=== PATIENT | female | born 1980 | race Caucasian/White ===

== ENCOUNTER 2016-06-20 05:33 | Observation (INO) | payer OTHER ==
[2016-06-20] MEDS ORDERED: SODIUM CHLORIDE 0.9% 1,000 ML IV STA (06:01)
[2016-06-20] MEDS ORDERED: KETOROLAC 30 MG/ML 1 ML VIAL IVP STA ×2 (06:01→06:42)
--- NOTE | 2016-06-20 06:07 | ED ---
Chest Pain HPI - General Source: patient, RN notes reviewed Mode of arrival: ambulatory Limitations: no limitations - History of Present Illness MD Complaint: chest pain <Karthik Burr - Last Filed: 06/20/16 06:56> <Mitch Nettles - Last Filed: 06/20/16 09:14> - General Chief Complaint: Chest Pain Stated Complaint: chest pain Time Seen by Provider: 06/20/16 05:50 - History of Present Illness Initial Comments: This is a 36-year-old female who states he had the onset of some sharp to dull left-sided chest pain it radiates to her back. Started about 3 AM awoke her from sleep. She states is 8/10 severity and does increase with deep breathing. She denies any fevers chills sweats cough abdominal pain no prior history of heart or lung disease she is a smoker she does use an inhaler but she's never been officially diagnosed as having asthma or COPD. She states she had similar pain about 4 years ago that was untreated and resolved spontaneously. (Karthik Brur) - Related Data Allergies Allergy/AdvReac Type Severity Reaction Status Date / Time No Known Allergies Allergy Verified 06/20/16 07:49 Review of Systems ROS Other: All systems not noted in ROS Statement are negative. <Karthik Burr - Last Filed: 06/20/16 06:56> ROS Other: All systems not noted in ROS Statement are negative. <Mitch Nettles - Last Filed: 06/20/16 09:14> ROS Statement: Those systems with pertinent positive or pertinent negative responses have been documented in the HPI. EKG Findings - EKG Results: EKG: interpreted by ERMD WNL, sinus rhythm, normal axis, normal QRS, normal ST/ T, no acute changes (Normal sinus rhythm a rate of 100 NJ interval 1:30 QRS duration 86 QT/QTC of 356/[address]-T wave changes.) <Karthik Burr - Last Filed: 06/20/16 06:56> Past Medical History Past Medical History: Hypertension History of Any Multi-Drug Resistant Organisms: None Reported Past Surgical History: No Surgical Hx Reported Past Psychological History: Anxiety Smoking Status: Current some day smoker Past Alcohol Use History: None Reported Past Drug Use History: None Reported <Karthik Burr - Last Filed: 06/20/16 06:56> General Exam Limitations: no limitations General appearance: alert, anxious, in distress Head exam: Present: atraumatic, normocephalic, normal inspection Eye exam: Present: normal appearance, PERRL, EOMI. Absent: scleral icterus, conjunctival injection, periorbital swelling ENT exam: Present: normal exam, mucous membranes moist Neck exam: Present: normal inspection. Absent: tenderness, meningismus, lymphadenopathy Respiratory exam: Present: normal lung sounds bilaterally, chest wall tenderness (Some reproducible tenderness palpation along the left costosternal margin.). Absent: respiratory distress, wheezes, rales, rhonchi, stridor Cardiovascular Exam: Present: regular rate, normal rhythm, normal heart sounds. Absent: systolic murmur, diastolic murmur, rubs, gallop, clicks GI/Abdominal exam: Present: soft, normal bowel sounds. Absent: distended, tenderness, guarding, rebound, rigid Extremities exam: Present: normal inspection, full ROM, normal capillary refill. Absent: tenderness, pedal edema, joint swelling, calf tenderness Back exam: Present: normal inspection Neurological exam: Present: alert, oriented X3, CN II-XII intact Psychiatric exam: Present: normal affect, normal mood Skin exam: Present: warm, dry, intact, normal color. Absent: rash <Karthik Burr - Last Filed: 06/20/16 06:56> <Mitch Nettles - Last Filed: 06/20/16 09:14> - General Exam Comments Initial Comments: This is a well-developed well-nourished awake alert oriented 3 female (Karthik Burr) Course <Karthik Burr - Last Filed: 06/20/16 06:56> <Mitch Nettles - Last Filed: 06/20/16 09:14> Vital Signs 06/20/16 06/20/16 06/20/16 05:42 06:27 06:41 Temperature 97.0 F L Pulse Rate 91 85 93 Respiratory 16 20 20 Rate Blood Pressure 160/97 150/74 138/73 O2 Sat by Pulse 100 100 98 Oximetry 06/20/16 06/20/16 06/20/16 07:19 07:36 08:41 Temperature Pulse Rate 86 94 92 Respiratory 18 18 18 Rate Blood Pressure 133/66 125/84 136/67 O2 Sat by Pulse 99 100 100 Oximetry - Reevaluation(s) Reevaluation #1: 06/20/16 06:56 The patient's care will be endorsed to Dr. Nettles who will make the final disposition. (Karthik Burr) 06/20/16 09:13 Chest x-ray shows no acute process Patient reevaluated and having continued discomfort. Patient will be provided morphine. Case discussed with Dr. grewal, who will admit for observation. Patient and family updated. (Mitch Nettles) Disposition <Karthik Burr - Last Filed: 06/20/16 06:56> <Mitch Nettles - Last Filed: 06/20/16 09:14> Clinical Impression: Chest pain Disposition: ADMITTED IP TO THIS HOSP
[2016-06-20 06:21] LABS: Basophils # (A) 0.1 k/uL (0-0.2); Basophils % (A) 1 %; CH 26.7; Eosinophils # (A) 0.2 k/uL (0-0.7); Eosinophils % (A) 2 %; HCT 41.8 % (34.0-46.0); HDW 2.77; HGB 13.8 gm/dL (11.4-16.0); Luc # (Auto) 0.29; Luc % (Auto) 2; Lymphocytes # (A) 3.2 k/uL (1.0-4.8); Lymphocytes % (A) 26 %; MCH 26.8 pg (25.0-35.0); MCHC 32.9 g/dL (31.0-37.0); MCV 81.3 fL (80.0-100.0); Mean Platelet Volume 6.7; Monocytes # (A) 0.8 k/uL (0-1.0); Monocytes % (A) 7 %; Neutrophils # (A) 7.9 k/uL (1.3-7.7); Neutrophils % (A) 63 %; RBC 5.14 m/uL (3.80-5.40); RDW 14.3 % (11.5-15.5); WBC 12.5 k/uL (3.8-10.6); WBC (Perox) 12.35
[2016-06-20 06:33] LABS: ALT 30 U/L (9-52); AST 14 U/L (14-36); Alkaline Phosphatase 57 U/L (38-126); Amylase 84 U/L (30-110); Anion Gap 9 mmol/L; Blood Urea Nitrogen 10 mg/dL (7-17); Calcium 9.3 mg/dL (8.4-10.2); Carbon Dioxide 26 mmol/L (22-30); Chloride 107 mmol/L (98-107); Glucose 96 mg/dL (74-99); Magnesium 2.3 mg/dL (1.6-2.3); Non-African American GFR(MDRD) >60 (>60 ml/min/1.73 sqM); Potassium 4.6 mmol/L (3.5-5.1); Sodium 142 mmol/L (137-145); Total Bilirubin 0.4 mg/dL (0.2-1.3); Total Protein 7.5 g/dL (6.3-8.2)
[2016-06-20 06:43] LABS: Creatine Kinase 53 U/L (30-135)
[2016-06-20 06:46] LABS: INR 0.9 (<1.1); Partial Thromboplastin Time 24.8 sec (22.0-30.0); Prothrombin Time 9.5 sec (9.0-12.0)
[2016-06-20 06:56] LABS: Creatine Kinase MB <0.2 ng/mL (0.0-2.4); Troponin I <0.012 ng/mL (0.000-0.034)
[2016-06-20 07:35] LABS: Appearance,Urine Turbid (Clear); Bacteria,Urine Occasional /hpf; Bilirubin,Urine Negative (Negative); Glucose,Urine (UA) Negative (Negative); Ketones,Urine Negative (Negative); Leukocyte Esterase,Urine Large (Negative); Mucus,Urine Occasional /hpf; Nitrite,Urine Negative (Negative); Particle Count 37333; Protein,Urine Trace (Negative); RBC,Urine 12 /hpf (0-5); Specific Gravity,Urine 1.022 (1.001-1.035); Squamous Epithelial Cell,Urine 32 /hpf (0-4); UA Billing (MACRO vs. MICRO) MICRO; Urobilinogen,Urine <2.0 mg/dL (<2.0)
[2016-06-20 07:36] LABS: Glucose,Whole Blood 92 mg/dL (75-99)
--- NOTE | 2016-06-20 08:02 | XR ---
EXAMINATION TYPE: XR chest 2V DATE OF EXAM: 06/20/2016 6:27 AM COMPARISON: NONE HISTORY: Chest pain TECHNIQUE: Frontal and lateral views of the chest are obtained. FINDINGS: There is no focal air space opacity, pleural effusion, or pneumothorax seen. The cardiac silhouette size is within normal limits. The osseous structures are intact. IMPRESSION: No acute cardiopulmonary process.
[2016-06-20] MEDS ORDERED: NITROGLYCERIN SL TABS 0.4 MG TAB SUBLINGUAL STA (08:15)
[2016-06-20] MEDS ORDERED: MORPHINE SULFATE 4 MG/ML SYRINGE IVP STA (08:50)
[2016-06-20] MEDS ORDERED: ONDANSETRON 4 MG/2 ML VIAL IVP STA (09:02)
[2016-06-20] MEDS ORDERED: NITROGLYCERIN SL TABS 0.4 MG TAB SUBLINGUAL PRN (09:14)
[2016-06-20] MEDS ORDERED: ACETAMINOPHEN TAB 325 MG TAB PO PRN (11:43)
[2016-06-20] MEDS: NITROGLYCERIN OINT 1 INCH/GM PACKET TOPICAL SCH ×2 (12:06→20:04)
[2016-06-20 12:11] LABS: Creatine Kinase 51 U/L (30-135)
[2016-06-20 12:25] LABS: Creatine Kinase MB <0.2 ng/mL (0.0-2.4); Troponin I <0.012 ng/mL (0.000-0.034)
[2016-06-20 18:48] LABS: Creatine Kinase 48 U/L (30-135)
[2016-06-20 19:01] LABS: Creatine Kinase MB <0.2 ng/mL (0.0-2.4); Troponin I <0.012 ng/mL (0.000-0.034)
[2016-06-20] MEDS ORDERED: CYCLOBENZAPRINE 10 MG TAB PO PRN (20:34)
[2016-06-20] MEDS ORDERED: clonazePAM 0.5 MG TAB PO PRN (20:34)
[2016-06-20] MEDS ORDERED: GABAPENTIN 400 MG CAP PO PRN (20:34)
[2016-06-20] MEDS: HYDROcodone/APAP 7.5-325MG 1 EACH TAB PO PRN (20:44)
[2016-06-21] MEDS: NITROGLYCERIN OINT 1 INCH/GM PACKET TOPICAL SCH ×4 (00:11→17:52)
[2016-06-21 05:56] LABS: Cholesterol 154 mg/dL (<200); HDL Cholesterol 38 mg/dL (40-60); Triglycerides 309 mg/dL (<150)
[2016-06-21] MEDS: HYDROcodone/APAP 7.5-325MG 1 EACH TAB PO PRN ×2 (08:14→16:04)
[2016-06-21] MEDS ORDERED: ASPIRIN 325 MG TAB PO SCH (09:00)
[2016-06-21] MEDS ORDERED: CITALOPRAM HYDROBROMIDE 20 MG TAB PO SCH (09:00)
--- NOTE | 2016-06-21 11:10 | P.CRDCN ---
History of Present Illness Consult date: 06/21/16 History of present illness: This is a 36-year-old female with history of hypertension and obesity who came to the hospital with complaints of chest discomfort that started around 3:00 last night. The pain was sharp in nature and felt in the precordial area and also in the back. The pain is respirophasic and also seemed to be related to movements of the chest. This morning patient doesn't have any chest pain but most of the pain is in the back associated with some tenderness. Her EKG did not reveal any acute changes. Cardiac enzymes are negative. Pains appear to be muscular skeletal. We discussed about doing a stress test to rule out any underlying coronary artery disease. Patient preferred not to have the test. We 'll do echocardiogram. If the echo is normal, patient could be discharged on symptomatically therapy. Follow-up with primary care. If necessary, an outpatient stress test could be considered. Review of Systems As per the chart Past Medical History Past Medical History: Hypertension, Pneumonia Additional Past Medical History / Comment(s): RLS History of Any Multi-Drug Resistant Organisms: None Reported Past Surgical History: No Surgical Hx Reported Past Anesthesia/Blood Transfusion Reactions: Unable to Obtain, Motion Sickness Additional Past Anesthesia/Blood Transfusion Reaction / Comment(s): Pt has never received anesthesia. Past Psychological History: Anxiety Additional Psychological History / Comment(s): Pt states her anxiety has been increased lately d/t recent move and looking for employment. She resides with her significant other. She is independent. Smoking Status: Current some day smoker Past Alcohol Use History: None Reported Additional Past Alcohol Use History / Comment(s): Pt states she smokes occasionally in the past year due to stress. Past Drug Use History: None Reported - Past Family History Father Family Medical History: Hypertension Additional Family Medical History / Comment(s): Father has heart problems and has had both knees replaced. He is 65yrs old. Mother Family Medical History: COPD, Fibromyalgia, Musculoskeletal Disorder, Neurologic Disorder, Seizure Disorder Additional Family Medical History / Comment(s): Mother has MD. She is 64yrs old. Medications and Allergies Home Medications Medication Instructions Recorded Confirmed Type Citalopram Hydrobromide [CeleXA] 20 mg PO DAILY 06/20/16 06/20/16 History Cyclobenzaprine [Flexeril] 10 mg PO DAILY PRN 06/20/16 06/20/16 History Gabapentin [Neurontin] 800 mg PO BID PRN 06/20/16 06/20/16 History Multivitamin [Multivitamins Adult 1 tab PO DAILY 06/20/16 06/20/16 History Gummies] clonazePAM [KlonoPIN] 0.5 mg PO DAILY PRN 06/20/16 06/20/16 History Allergies Allergy/AdvReac Type Severity Reaction Status Date / Time No Known Allergies Allergy Verified 06/20/16 07:49 Physical Exam Vitals: Vital Signs Temp Pulse Pulse Resp BP BP Pulse Ox 06/21/16 08:00 97.7 F 85 16 112/87 100 06/21/16 04:00 98 F 82 16 134/74 100 06/21/16 03:51 71 16 06/21/16 00:00 97.8 F 90 16 135/76 98 06/20/16 23:41 90 16 06/20/16 20:00 98 F 100 16 152/92 99 06/20/16 16:00 98.3 F 72 16 125/69 98 06/20/16 12:36 98 Intake and Output 06/20/16 06/21/16 06/21/16 22:59 06:59 14:59 Intake Total 500 Balance 500 Intake: Oral 500 Other: Voiding Method Toilet Toilet Toilet # Voids 1 2 GENERAL EXAM: Patient is alert and oriented and doesn't appear to be in any acute distress HEENT: Normocephalic. Normal reaction of pupils, equal size, normal range of extraocular motion. No erythema or exudates in the throat. NECK: No masses, no nuchal rigidity. CHEST: No chest wall deformity. LUNGS: Equal air entry with no crackles or wheeze. HEART: S1 and S2 normal with no audible mumurs or gallops. Regular rhythm, femorals equal on both sides.. ABDOMEN: No hepatosplenomegaly, normal bowel sounds, no guarding or rigidity. SKIN: No rashes CENTRAL NERVOUS SYSTEM: No focal deficits. EXTREMITIES: No cyanosis, clubbing or edema. Results 06/20/16 05:59 06/20/16 05:59 Cardiac Enzymes 06/20/16 06/20/16 Range/Units 11:36 18:08 CK-MB (CK-2) <0.2 <0.2 (0.0-2.4) ng/mL Troponin I <0.012 <0.012 (0.000-0.034) ng/mL Current Medications Generic Name Dose Route Start Last Admin Trade Name Elder PRN Reason Stop Dose Admin Acetaminophen 650 mg 06/20/16 11:43 06/20/16 12:06 Tylenol Tab PO 650 mg Q4HR PRN Administration Fever and/ or Mild Pain Hydrocodone Bitart/Acetaminophen 1 each 06/20/16 20:36 06/21/16 08:14 [place] 7.5-325 PO 1 each Q6H PRN Administration Moderate Pain Aspirin 325 mg 06/21/16 09:00 Aspirin PO DAILY EVIN Citalopram Hydrobromide 20 mg 06/21/16 09:00 Celexa PO DAILY EVIN Clonazepam 0.5 mg 06/20/16 20:34 Klonopin PO DAILY PRN Anxiety Cyclobenzaprine HCl 10 mg 06/20/16 20:34 Flexeril PO DAILY PRN Spasms Gabapentin 800 mg 06/20/16 20:34 Neurontin PO BID PRN Pain Ceftriaxone Sodium 1,000 mg/ 50 mls @ 100 mls/hr 06/20/16 11:45 06/20/16 12: 10 Sodium Chloride IVPB 100 mls/hr Q24HR EVIN Administration Multivitamins 1 each 06/21/16 12:00 Theragran PO DAILY@1200 EVIN Nitroglycerin 1 inch 06/20/16 12:00 06/21/16 05:34 Nitro-Bid Oint TOPICAL Not Given Q6HR [facility] Nitroglycerin 0.4 mg 06/20/16 09:14 Nitrostat SUBLINGUAL Q5M PRN Chest Pain Intake and Output 06/20/16 06/21/16 06/21/16 22:59 06:59 14:59 Intake Total 500 Balance 500 Intake: Oral 500 Other: Voiding Method Toilet Toilet Toilet # Voids 1 2 EKG Interpretations (text) Sinus rhythm Assessment and Plan (1) Hypertension Status: Acute (2) Chest pain Status: Acute Plan: Her chest pains appear to be atypical and probably muscular skeletal. Enzymes and EKGs are negative. Patient prefers not to have a stress test. We'll do the echocardiogram. If that is normal patient could be discharged home on symptomatically medical therapy. Follow-up with PCP.
--- NOTE | 2016-06-21 11:40 | HP ---
DATE OF ADMISSION: 06/20/2016 PRESENTING COMPLAINT: Chest pain. HISTORY OF PRESENTING COMPLAINT: This is a 36-year-old patient who has just moved here with her fiance from [place] to [place]. Chronic stable conditions include hypertension, restless leg syndrome, GERD. Patient has been moving heavy boxes up until about 2 weeks ago. Patient presents with chest pain, located behind the left breast, felt a bit sharp, sometimes going through the back. She may be a little bit short of breath, dizzy she says, no perspiration, especially on movements, just feels tired. No prior cardiac history, otherwise pretty active. REVIEW OF SYSTEMS: CONSTITUTIONAL: None. HEENT: None. RESPIRATORY: None. CARDIOVASCULAR: As above. GASTROINTESTINAL: Heartburn present. MUSCULOSKELETAL: As above. DERMATOLOGICAL: None. HEMATOLOGICAL: None. LYMPHATIC: None. PSYCHIATRY: None. NEUROLOGICAL: Restless legs syndrome. Past history of hypertension, restless leg syndrome, GERD. PAST SURGICAL HISTORY: None. SOCIAL HISTORY: Patient does occasional cigarettes, looking for a job. Lives with her female fianc?, denies recreational drugs. FAMILY HISTORY: Father had heart problems, hypertension. HOME MEDICATIONS: 1. Klonopin 0.5 p.o. daily p.r.n. 2. Multivitamins 1 tablet p.o. daily. 3. Neurontin 800 mg p.o. b.i.d. p.r.n. 4. Flexeril 10 mg p.o. daily p.r.n. 5. Celexa 20 mg p.o. daily. ALLERGIES: None. On examination, temperature 97.7, pulse 85, respiration 16, blood pressure 102/87, pulse ox 100% on room air. GENERAL APPEARANCE: Well built, BMI of 43.4, sitting up, comfortable. EYES: Pupils equal. Conjunctivae normal. HEENT: Oral cavity normal. NECK: JVD not raised. Mass not palpable. Respiratory effort normal. Lungs are clear. CARDIOVASCULAR: First and second sounds normal. No edema. ABDOMEN: Soft, nontender. Liver and spleen not palpable. LYMPHATIC: No lymph node palpable in neck or axillae. PSYCHIATRY: Alert and oriented x3. Mood and affect normal. NEUROLOGICAL: Pupils equal. Cranial nerves grossly intact. Power and sensation grossly intact. MUSCULOSKELETAL: Some reproducible pain in the left chest wall. INVESTIGATIONS: White count 12.5, hemoglobin 13.8. D-dimer 0.32, potassium 4.6, creatinine 0.012. Chest x-ray, nil acute. ASSESSMENT: 1. Left chest wall pain, could be musculoskeletal and the patient is obese, has been heavy lifting heavy boxes while moving. Risk factor only includes hypertension. We need to rule out a cardiac cause. 2. Essential hypertension. 3. Restless leg syndrome. 4. Gastroesophageal reflux disease. 5. Morbid obesity, body mass index of 43.1. PLAN: Patient is on aspirin, nitro paste. Cardiology is consulted. Patient also being treated for a UTI from the ER. Patient will be established with Dr. Rojas as her family doctor.
[2016-06-21] MEDS ORDERED: MULTIVITAMINS, THERA 1 EACH TAB PO SCH (12:00)
[2016-06-21 13:22] VITALS: RESP 18; TEMP 97.8
[2016-06-21 16:41] VITALS: BP 131/81; PULSE 89
--- NOTE | 2016-06-21 17:15 | ECHOF ---
Referral Reason:Chest pain and cardiomyopathy MEASUREMENTS -------- HEIGHT: 165.1 cm WEIGHT: 117.5 kg BP: 112/87 RVIDd: 3.2 cm (< 3.3) IVSd: 1.1 cm (0.6 - 1.1) LVIDd: 4.1 cm (3.9 - 5.3) LVPWd: 1.0 cm (0.6 - 1.1) IVSs: 1.6 cm LVIDs: 2.9 cm LVPWs: 1.7 cm LA Diam: 3.3 cm (2.7 - 3.8) Ao Diam: 3.0 cm (2.0 - 3.7) AV Cusp: 2.1 cm (1.5 - 2.6) MV EXCURSION: 11.453 mm (> 18.000) MV EF SLOPE: 73 mm/s (70 - 150) EPSS: 0.7 cm MV E Luke: 0.97 m/s MV DecT: 201 ms MV A Luke: 0.99 m/s MV E/A Ratio: 0.98 FINDINGS -------- Sinus rhythm. This was a technically adequate study. The left ventricular size is normal. Left ventricular wall thickness is normal. Overall left ventricular systolic function is normal with, an EF between 60 - 65 %. The right ventricle is normal in size and function. The left atrial size is normal. The right atrium is normal in size. The aortic valve is trileaflet and appears structurally normal. There is trace to mild mitral regurgitation. The tricuspid valve appears structurally normal. Trace/mild (physiologic) pulmonic regurgitation. The aortic root, ascending aorta and aortic arch are normal. Normal inferior vena cava with normal inspiratory collapse consistent with estimated right atrial pressure of 5 mmHg. There is no pericardial effusion. CONCLUSIONS -------- 1. Sinus rhythm. 2. There is trace to mild mitral regurgitation. 3. The tricuspid valve appears structurally normal. 4. Trace/mild (physiologic) pulmonic regurgitation. 5. The aortic root, ascending aorta and aortic arch are normal. 6. Normal inferior vena cava with normal inspiratory collapse consistent with estimated right atrial pressure of 5 mmHg. 7. There is no pericardial effusion. 8. This was a technically adequate study. 9. The left ventricular size is normal. 10. Left ventricular wall thickness is normal. 11. Overall left ventricular systolic function is normal with, an EF between 60 - 65 %. 12. The right ventricle is normal in size and function. 13. The left atrial size is normal. 14. The right atrium is normal in size. 15. The aortic valve is trileaflet and appears structurally normal. TURBINE INSPECTOR: Daya Banerjee RDCS
--- NOTE | 2016-06-24 14:55 | DS ---
DATE OF ADMISSION: 06/20/2016 DATE OF DISCHARGE: 06/21/2016 FINAL DIAGNOSIS(ES): 1. Chest wall pain, likely musculoskeletal at rest. 2. Essential hypertension. 3. Restless leg syndrome. 4. Morbid obesity, body mass index of 43.1. 5. Urinary tract infection present on admission. HOSPITAL COURSE: This patient has been lifting heavy boxes in the process of moving. Presented with left chest wall pain, ( ) present. Seen by cardiology Dr. Hodge. Latia to be discharged. The patient did have a 2-D echocardiogram that was normal. On examination, left sided reproducible chest pain. Lungs clear. Troponins are negative. DISCHARGE MEDICATIONS: 1. Celexa 20 mg p.o. daily. 2. Flexeril 10 mg p.o. daily. 3. Neurontin 800 mg p.o. b.i.d. p.r.n. 4. Multivitamin 1 tablet p.o. daily. 5. Klonopin 0.5 mg p.o. daily p.r.n. 6. Cipro 250 mg p.o. q.12 6 tablets. 7. Naproxen 250 mg p.o. b.i.d., 14 tablets. Follow up with Dr. Rojas in one week.
== END 2016-06-21 18:00 | disposition home or self-care (01) ==
LOC: EC 05:33 → 3OBS 09:14
PROVIDERS: ADMIT Hospitalist; ATTEND Hospitalist
DX: R07.89 Other chest pain (principal); R07.2 Precordial pain; I10 Essential (primary) hypertension; G25.81 Restless legs syndrome; K21.9 Gastro-esophageal reflux disease without esophagitis; E66.01 Morbid (severe) obesity due to excess calories; Z68.41 Body mass index [BMI] 40.0-44.9, adult; F41.9 Anxiety disorder, unspecified; N39.0 Urinary tract infection, site not specified; F17.210 Nicotine dependence, cigarettes, uncomplicated; Z82.49 Family history of ischemic heart disease and other diseases of the circulatory system; Z79.899 Other long term (current) drug therapy; Z87.01 Personal history of pneumonia (recurrent); Z82.5 Family history of asthma and other chronic lower respiratory diseases
CPT/HCPCS: 96375 ×2; 93005 ×2; 96365; 96366 ×2; 96376; 96361; 99285; 36415; 93306; 85379; 83880; 80061; 80053; 82150; 82550; 82553; 83690; 83735; 84484; 85025; 85610; 85730; 81001; 71020; G0378 ×2; J2270; J2405; J0696 ×2; J1885; 96374

== ENCOUNTER 2016-07-21 06:45 | Emergency (ER) | payer OTHER ==
[2016-07-21] MEDS ORDERED: KETOROLAC 30 MG/ML 1 ML VIAL IVP STA (07:36)
[2016-07-21] MEDS ORDERED: SODIUM CHLORIDE 0.9% 1,000 ML IV STA (07:36)
[2016-07-21] MEDS ORDERED: METOCLOPRAMIDE 5 MG/ML 2 ML VIAL IVP STA (07:36)
--- NOTE | 2016-07-21 07:41 | ED ---
General Adult HPI - General Chief complaint: Abdominal Pain Stated complaint: abd pain,vomiting Time Seen by Provider: 07/21/16 07:00 Source: patient, RN notes reviewed Mode of arrival: ambulatory Limitations: no limitations - History of Present Illness Initial comments: Patient is a pleasant 36-year-old female presenting to the emergency department with complaints of abdominal discomfort. Onset was 5 AM. Discomfort is upper abdomen and does radiate somewhat towards the back. Patient has had nausea 3 episodes of vomiting. No fever. Patient last had oral intake at 9 PM. Patient has had similar symptoms a couple times previously. Patient once was seen in the emergency department work however complain more of chest discomfort. Patient states no significant chest discomfort today. No dyspnea. Patient questions if her gallbladder could be causing her symptoms. - Related Data Home Medications Medication Instructions Recorded Confirmed Gabapentin [Neurontin] 800 mg PO BID PRN 06/20/16 07/21/16 Multivitamin [Multivitamins Adult 1 tab PO DAILY 06/20/16 07/21/16 Gummies] Escitalopram [Lexapro] 20 mg PO DAILY 07/21/16 07/21/16 Previous Rx's Medication Instructions Recorded Amoxicillin 500 mg PO Q8H #30 capsule 07/21/16 Hydrocodone/Acetaminophen [Curlew 2 each PO Q6HR PRN #20 tab 07/21/16 5-325] Metoclopramide HCl [Reglan] 10 mg PO Q6HR PRN #15 tablet 07/21/16 Allergies Allergy/AdvReac Type Severity Reaction Status Date / Time No Known Allergies Allergy Verified 07/21/16 06:54 Review of Systems ROS Statement: Those systems with pertinent positive or pertinent negative responses have been documented in the HPI. ROS Other: All systems not noted in ROS Statement are negative. Constitutional: Denies: fever Eyes: Denies: eye pain ENT: Denies: ear pain Respiratory: Denies: cough Cardiovascular: Denies: chest pain Endocrine: Denies: fatigue Gastrointestinal: Reports: abdominal pain, nausea, vomiting Genitourinary: Denies: dysuria Musculoskeletal: Denies: back pain Skin: Denies: rash Neurological: Denies: weakness Past Medical History Past Medical History: Hypertension, Pneumonia Additional Past Medical History / Comment(s): RLS History of Any Multi-Drug Resistant Organisms: None Reported Past Surgical History: No Surgical Hx Reported Past Anesthesia/Blood Transfusion Reactions: Unable to Obtain, Motion Sickness Additional Past Anesthesia/Blood Transfusion Reaction / Comment(s): Pt has never received anesthesia. Past Psychological History: Anxiety Additional Psychological History / Comment(s): Pt states her anxiety has been increased lately d/t recent move and looking for employment. She resides with her significant other. She is independent. Smoking Status: Current some day smoker Past Alcohol Use History: None Reported Additional Past Alcohol Use History / Comment(s): Pt states she smokes occasionally in the past year due to stress. Past Drug Use History: None Reported - Past Family History Father Family Medical History: Hypertension Additional Family Medical History / Comment(s): Father has heart problems and has had both knees replaced. He is 65yrs old. Mother Family Medical History: COPD, Fibromyalgia, Musculoskeletal Disorder, Neurologic Disorder, Seizure Disorder Additional Family Medical History / Comment(s): Mother has MD. She is 64yrs old. General Exam Limitations: no limitations General appearance: alert, in no apparent distress Head exam: Present: atraumatic Eye exam: Present: normal appearance, PERRL ENT exam: Present: normal oropharynx Neck exam: Present: normal inspection Respiratory exam: Present: normal lung sounds bilaterally Cardiovascular Exam: Present: regular rate, normal rhythm Expanded Peripheral pulses: 2+: Posterior Tibialis (R), Posterior Tibialis (L) GI/Abdominal exam: Present: soft, tenderness (Mild epigastric tenderness, moderate right upper quadrant tenderness), normal bowel sounds. Absent: distended, guarding, rebound, rigid, pulsatile mass Extremities exam: Present: normal inspection Neurological exam: Present: alert Psychiatric exam: Present: normal affect, normal mood Skin exam: Present: normal color Course Vital Signs 07/21/16 06:52 Temperature 96.9 F L Pulse Rate 78 Respiratory 18 Rate Blood Pressure 176/104 O2 Sat by Pulse 99 Oximetry Medical Decision Making - Medical Decision Making Patient reexamined and improved. Only mild tenderness of the right upper quadrant. Patient states discomfort is currently 3/10 and states it is tolerable. No nausea. Patient updated on results. Case was discussed in detail with Dr. Catherine, including blood work and ultrasound. She states patient can be discharged for follow-up this week. She does request antibiotics. Patient updated on plan. Patient will be discharged pending recheck blood pressure. - Lab Data Result diagrams: 07/21/16 07:03 07/21/16 07:03 Lab Results 07/21/16 07/21/16 07/21/16 Range/Units 07:03 07:03 07:03 WBC 13.2 H (3.8-10.6) k/uL RBC 4.91 (3.80-5.40) m/uL Hgb 13.0 (11.4-16.0) gm/dL Hct 40.9 (34.0-46.0) % MCV 83.2 (80.0-100.0) fL MCH 26.6 (25.0-35.0) pg MCHC 31.9 (31.0-37.0) g/dL RDW 14.2 (11.5-15.5) % Plt Count 351 (150-450) k/uL Neutrophils % 63 % Lymphocytes % 29 % Monocytes % 5 % Eosinophils % 1 % Basophils % 1 % Neutrophils # 8.3 H (1.3-7.7) k/uL Lymphocytes # 3.8 (1.0-4.8) k/uL Monocytes # 0.6 (0-1.0) k/uL Eosinophils # 0.2 (0-0.7) k/uL Basophils # 0.1 (0-0.2) k/uL PT (9.0-12.0) sec INR (<1.1) APTT (22.0-30.0) sec Sodium 143 (137-145) mmol/L Potassium 3.8 (3.5-5.1) mmol/L Chloride 104 (98-107) mmol/L Carbon Dioxide 27 (22-30) mmol/L Anion Gap 12 mmol/L BUN 13 (7-17) mg/dL Creatinine 0.75 (0.52-1.04) mg/dL Est GFR (MDRD) Af Amer >60 (>60 ml/min/1.73 sqM) Est GFR (MDRD) Non-Af >60 (>60 ml/min/1.73 sqM) Glucose 109 H (74-99) mg/dL Calcium 8.8 (8.4-10.2) mg/dL Total Bilirubin 0.4 (0.2-1.3) mg/dL AST 19 (14-36) U/L ALT 29 (9-52) U/L Alkaline Phosphatase 56 (38-126) U/L Total Protein 7.3 (6.3-8.2) g/dL Albumin 4.1 (3.5-5.0) g/dL Amylase 75 (30-110) U/L Lipase 180 (23-300) U/L Urine Color Yellow Urine Appearance Turbid H (Clear) Urine pH 5.5 (5.0-8.0) Ur Specific [place] 1.024 (1.001-1.035) Urine Protein Trace H (Negative) Urine Glucose (UA) Negative (Negative) Urine Ketones Negative (Negative) Urine Blood Small H (Negative) Urine Nitrite Negative (Negative) Urine Bilirubin Negative (Negative) Urine Urobilinogen <2.0 (<2.0) mg/dL Ur Leukocyte Esterase Small H (Negative) Urine RBC 2 (0-5) /hpf Urine WBC 2 (0-5) /hpf Ur Squamous Epith Cells 41 H (0-4) /hpf Calcium Oxalate Crystal Moderate H (None) /hpf Urine Bacteria Rare H (None) /hpf Urine Mucus Rare H (None) /hpf Urine HCG, Qual (Not Detectd) 07/21/16 07/21/16 Range/Units 07:03 07:03 WBC (3.8-10.6) k/uL RBC (3.80-5.40) m/uL Hgb (11.4-16.0) gm/dL Hct (34.0-46.0) % MCV (80.0-100.0) fL MCH (25.0-35.0) pg MCHC (31.0-37.0) g/dL RDW (11.5-15.5) % Plt Count (150-450) k/uL Neutrophils % % Lymphocytes % % Monocytes % % Eosinophils % % Basophils % % Neutrophils # (1.3-7.7) k/uL Lymphocytes # (1.0-4.8) k/uL Monocytes # (0-1.0) k/uL Eosinophils # (0-0.7) k/uL Basophils # (0-0.2) k/uL PT 9.8 (9.0-12.0) sec INR 1.0 (<1.1) APTT 25.0 (22.0-30.0) sec Sodium (137-145) mmol/L Potassium (3.5-5.1) mmol/L Chloride (98-107) mmol/L Carbon Dioxide (22-30) mmol/L Anion Gap mmol/L BUN (7-17) mg/dL Creatinine (0.52-1.04) mg/dL Est GFR (MDRD) Af Amer (>60 ml/min/1.73 sqM) Est GFR (MDRD) Non-Af (>60 ml/min/1.73 sqM) Glucose (74-99) mg/dL Calcium (8.4-10.2) mg/dL Total Bilirubin (0.2-1.3) mg/dL AST (14-36) U/L ALT (9-52) U/L Alkaline Phosphatase (38-126) U/L Total Protein (6.3-8.2) g/dL Albumin (3.5-5.0) g/dL Amylase (30-110) U/L Lipase (23-300) U/L Urine Color Urine Appearance (Clear) Urine pH (5.0-8.0) Ur Specific [place] (1.001-1.035) Urine Protein (Negative) Urine Glucose (UA) (Negative) Urine Ketones (Negative) Urine Blood (Negative) Urine Nitrite (Negative) Urine Bilirubin (Negative) Urine Urobilinogen (<2.0) mg/dL Ur Leukocyte Esterase (Negative) Urine RBC (0-5) /hpf Urine WBC (0-5) /hpf Ur Squamous Epith Cells (0-4) /hpf Calcium Oxalate Crystal (None) /hpf Urine Bacteria (None) /hpf Urine Mucus (None) /hpf Urine HCG, Qual Not Detected (Not Detectd) - Radiology Data Radiology results: report reviewed (Ultrasound gallbladder shows cholelithiasis and small amount of free fluid adjacent to the pancreas.), image reviewed (KUB shows no acute process) Disposition Clinical Impression: Cholelithiasis Disposition: HOME SELF-CARE Condition: Stable Instructions: Biliary Colic (ED), Gallstones (ED) Additional Instructions: Please follow-up with surgeon Dr. Catherine this week. She will send you up for surgery. Return for fever, increased pain, vomiting, worsening symptoms or other concerns. Prescriptions: Amoxicillin 500 mg PO Q8H #30 capsule Hydrocodone/Acetaminophen [Curlew 5-325] 2 each PO Q6HR PRN #20 tab PRN Reason: Pain Metoclopramide HCl [Reglan] 10 mg PO Q6HR PRN #15 tablet PRN Reason: Nausea Referrals: Joann Martin MD [STAFF PHYSICIAN] - 1-2 days Tori Catherine MD [STAFF PHYSICIAN] - 1-2 days Time of Disposition: 09:32
[2016-07-21 08:04] LABS: Basophils # (A) 0.1 k/uL (0-0.2); Basophils % (A) 1 %; CH 26.3; CHCM 31.7; Eosinophils # (A) 0.2 k/uL (0-0.7); Eosinophils % (A) 1 %; HCT 40.9 % (34.0-46.0); HDW 2.64; Luc # (Auto) 0.25; Luc % (Auto) 2; Lymphocytes # (A) 3.8 k/uL (1.0-4.8); Lymphocytes % (A) 29 %; MCH 26.6 pg (25.0-35.0); MCHC 31.9 g/dL (31.0-37.0); MCV 83.2 fL (80.0-100.0); Mean Platelet Volume 6.8; Monocytes # (A) 0.6 k/uL (0-1.0); Monocytes % (A) 5 %; Neutrophils # (A) 8.3 k/uL (1.3-7.7); Neutrophils % (A) 63 %; RBC 4.91 m/uL (3.80-5.40); RDW 14.2 % (11.5-15.5); WBC 13.2 k/uL (3.8-10.6); WBC (Perox) 12.91
[2016-07-21 08:09] LABS: Appearance,Urine Turbid (Clear); Bacteria,Urine Rare /hpf; Bilirubin,Urine Negative (Negative); Calcium Oxalate Crystals,Urine Moderate /hpf; Glucose,Urine (UA) Negative (Negative); Ketones,Urine Negative (Negative); Leukocyte Esterase,Urine Small (Negative); Mucus,Urine Rare /hpf; Nitrite,Urine Negative (Negative); PH, Urine 5.5 (5.0-8.0); Particle Count 18106; Protein,Urine Trace (Negative); RBC,Urine 2 /hpf (0-5); Specific Gravity,Urine 1.024 (1.001-1.035); Squamous Epithelial Cell,Urine 41 /hpf (0-4); UA Billing (MACRO vs. MICRO) MICRO; Urobilinogen,Urine <2.0 mg/dL (<2.0); WBC,Urine 2 /hpf (0-5)
[2016-07-21 08:13] LABS: Prothrombin Time 9.8 sec (9.0-12.0)
[2016-07-21 08:17] LABS: ALT 29 U/L (9-52); AST 19 U/L (14-36); Alkaline Phosphatase 56 U/L (38-126); Amylase 75 U/L (30-110); Anion Gap 12 mmol/L; Blood Urea Nitrogen 13 mg/dL (7-17); Calcium 8.8 mg/dL (8.4-10.2); Carbon Dioxide 27 mmol/L (22-30); Chloride 104 mmol/L (98-107); Glucose 109 mg/dL (74-99); Non-African American GFR(MDRD) >60 (>60 ml/min/1.73 sqM); Potassium 3.8 mmol/L (3.5-5.1); Sodium 143 mmol/L (137-145); Total Bilirubin 0.4 mg/dL (0.2-1.3); Total Protein 7.3 g/dL (6.3-8.2)
[2016-07-21] MEDS ORDERED: HYDROmorphone 1 MG/ML 1 ML SYRINGE IVP STA (08:19)
--- NOTE | 2016-07-21 08:48 | XR ---
EXAMINATION TYPE: XR KUB DATE OF EXAM: 07/21/2016 8:28 AM COMPARISON: NONE INDICATION: Abdomen pain right upper quadrant TECHNIQUE: Single view abdomen FINDINGS: There is a normal bowel gas pattern. Psoas margins are normal. No organomegaly is present. No suspicious calcifications are evident. IMPRESSION: 1. Unremarkable Abdomen
--- NOTE | 2016-07-21 09:06 | US ---
EXAMINATION TYPE: US gallbladder DATE OF EXAM: 07/21/2016 8:24 AM COMPARISON: NONE CLINICAL HISTORY: Pain. EXAM MEASUREMENTS: Liver Length: 14.5 cm Gallbladder Wall: 0.3 cm CBD: 0.4 cm Right Kidney: 11.6 x 3.4 x 5.1 cm Morbidly obese patient, technically difficult study Pancreas: Partially obscured by bowel gas, there does appear to be some possible free fluid at area of pancreatic head Liver: Increased attenuation, decreased visualization of vessels suggestive of fatty infiltrate Gallbladder: cholelithiasis, some probable sludge, no wall thickening Evidence for sonographic Baires's sign: Yes CBD: wnl Right Kidney: wnl IMPRESSION: 1. Small amount of free fluid adjacent to the pancreas. 2. Cholelithiasis. Correlate for acute cholecystitis. 3. Mild fatty infiltration of the liver.
[2016-07-21 09:45] VITALS: BP 116/61; PULSE 73; RESP 18; TEMP 97.5
== END 2016-07-21 09:45 | disposition home or self-care (01) ==
LOC: EC 06:45
DX: K80.20 Calculus of gallbladder without cholecystitis without obstruction (principal); F41.9 Anxiety disorder, unspecified; F17.200 Nicotine dependence, unspecified, uncomplicated; Z79.899 Other long term (current) drug therapy
CPT/HCPCS: 99284; 96374; 96375 ×2; 96361 ×2; 36415; 80053; 82150; 83690; 85025; 85610; 85730; 81001; 81025; 74000; 76705; J2765; J1885; J1170

== ENCOUNTER 2016-07-23 13:30 | Inpatient (IN) | payer OTHER ==
[2016-07-23] MEDS ORDERED: SODIUM CHLORIDE 0.9% 1,000 ML IV STA (14:15)
[2016-07-23] MEDS ORDERED: HYDROmorphone 1 MG/ML 1 ML SYRINGE IVP STA (14:59)
--- NOTE | 2016-07-23 15:03 | ED ---
Abdominal Pain HPI <Mitch Nettles - Last Filed: 07/23/16 16:02> - General Source: patient, RN notes reviewed Mode of arrival: ambulatory Limitations: no limitations <Rupal Hoffman - Last Filed: 07/23/16 16:04> - General Chief Complaint: Abdominal Pain Stated Complaint: Gallbladder Pain Time Seen by Provider: 07/23/16 14:04 - History of Present Illness Initial Comments: 36-year-old female presents to the emergency department with a chief complaint of right upper quadrant abdominal pain. Patient states that this started today. She was seen here a few days ago associated gallstones. She has a procedure scheduled to get her gallbladder out however she started to develop pain today. Patient states she's had some nausea without vomiting. Patient denies any changes in bowel or bladder habits. Patient denies any fever. Patient states she continues to have the pain and discomfort so she thought that she should be evaluated. Patient denies any recent fever, chills, shortness of breath, chest pain, back pain, numbness or tingling, dysuria or hematuria, constipation or diarrhea, headaches or visual changes, or any other current symptoms. (Rupal Hoffman) - Related Data Home Medications Medication Instructions Recorded Confirmed Gabapentin [Neurontin] 800 mg PO BID PRN 06/20/16 07/23/16 Multivitamin [Multivitamins Adult 2 tab PO DAILY 06/20/16 07/23/16 Gummies] Citalopram Hydrobromide [CeleXA] 20 mg PO HS 07/21/16 07/23/16 Hydrocodone/Acetaminophen [Pray 2 tab PO Q6HR PRN 07/23/16 07/23/16 5-325] Previous Rx's Medication Instructions Recorded Amoxicillin 500 mg PO Q8H #30 capsule 07/21/16 Metoclopramide HCl [Reglan] 10 mg PO Q6HR PRN #15 tablet 07/21/16 Allergies Allergy/AdvReac Type Severity Reaction Status Date / Time No Known Allergies Allergy Verified 07/23/16 14:30 Review of Systems ROS Other: All systems not noted in ROS Statement are negative. <Mitch Nettles - Last Filed: 07/23/16 16:02> ROS Other: All systems not noted in ROS Statement are negative. <Rupal Hoffman - Last Filed: 07/23/16 16:04> ROS Statement: Those systems with pertinent positive or pertinent negative responses have been documented in the HPI. Past Medical History Past Medical History: Hypertension, Pneumonia Additional Past Medical History / Comment(s): RLS History of Any Multi-Drug Resistant Organisms: None Reported Past Surgical History: No Surgical Hx Reported Past Anesthesia/Blood Transfusion Reactions: Unable to Obtain, Motion Sickness Additional Past Anesthesia/Blood Transfusion Reaction / Comment(s): Pt has never received anesthesia. Past Psychological History: Anxiety Additional Psychological History / Comment(s): Pt states her anxiety has been increased lately d/t recent move and looking for employment. She resides with her significant other. She is independent. Smoking Status: Current some day smoker Past Alcohol Use History: None Reported Additional Past Alcohol Use History / Comment(s): Pt states she smokes occasionally in the past year due to stress. Past Drug Use History: None Reported - Past Family History Father Family Medical History: Hypertension Additional Family Medical History / Comment(s): Father has heart problems and has had both knees replaced. He is 65yrs old. Mother Family Medical History: COPD, Fibromyalgia, Musculoskeletal Disorder, Neurologic Disorder, Seizure Disorder Additional Family Medical History / Comment(s): Mother has MD. She is 64yrs old. <Rupal Hoffman - Last Filed: 07/23/16 16:04> General Exam <Mitch Nettles - Last Filed: 07/23/16 16:02> Limitations: no limitations <Rupal Hoffman - Last Filed: 07/23/16 16:04> - General Exam Comments Initial Comments: General: The patient is awake and alert, in no distress, and does not appear acutely ill. Eye: Pupils are equal, round and reactive to light, extra-ocular movements are intact; there is normal conjunctiva bilaterally. No signs of icterus. Ears, nose, mouth and throat: There are moist mucous membranes. Neck: The neck is supple, there is no tenderness. Cardiovascular: There is a regular rate and rhythm. No murmur, rub or gallop is appreciated. Respiratory: Lungs are clear to auscultation, respirations are non-labored, breath sounds are equal. No wheezes, stridor, rales, or rhonchi. Gastrointestinal: Soft, non-distended, right upper quadrant tenderness of the abdomen without masses or organomegaly noted. There is no rebound or guarding present. No CVA tenderness. Bowel sounds are unremarkable. Back: There is no tenderness to palpation in the midline. There is no obvious deformity. No rashes noted. Musculoskeletal: Normal ROM, no tenderness, There is no pedal edema. There is no calf tenderness or swelling. Sensation intact. Pulses equal bilaterally 2+. Neurological: CN II-XII intact, There are no obvious motor or sensory deficits. Coordination appears grossly intact. Speech is normal. Skin: Skin is warm and dry and no rashes or lesions are noted. Psychiatric: Cooperative, appropriate mood & affect, normal judgment. (Rupal Hoffman) Course <Mitch Nettles - Last Filed: 07/23/16 16:02> <Rupal Hoffman - Last Filed: 07/23/16 16:04> Vital Signs 07/23/16 13:38 Temperature 98.3 F Pulse Rate 91 Respiratory 20 Rate Blood Pressure 175/109 O2 Sat by Pulse 96 Oximetry - Reevaluation(s) Reevaluation #1: 07/23/16 16:03 Patient reevaluated by myself, Dr. Nettles. Patient resting comfortably in bed. Patient states discomfort is 3/10. Patient has moderate tenderness to palpation right upper quadrant. Case discussed in detail with Dr. Catherine who will admit this patient. Patient states she did follow up with Dr. Alfredo Burr. Patient does not meet sepsis criteria. (Mitch Nettles) Medical Decision Making - Lab Data Result diagrams: 07/23/16 14:50 07/23/16 14:50 <Mitch Nettles - Last Filed: 07/23/16 16:02> - Lab Data Result diagrams: 07/23/16 14:50 07/23/16 14:50 <Rupal Hoffman - Last Filed: 07/23/16 16:04> - Medical Decision Making 36-year-old female presents for right upper quadrant abdominal pain. At this time even after pain medication the patient continues to be tender in right upper quadrant. This time patient does have a history of cholelithiasis and is complaining of continuing pain. This time we will admit the patient. This time the patient does not meet sepsis criteria. This time patient is in agreement with plan. All questions have been answered. (Rupal Hoffman) - Lab Data Lab Results 07/23/16 07/23/16 Range/Units 14:50 14:50 WBC 12.2 H (3.8-10.6) k/uL RBC 4.92 (3.80-5.40) m/uL Hgb 12.9 (11.4-16.0) gm/dL Hct 40.3 (34.0-46.0) % MCV 81.8 (80.0-100.0) fL MCH 26.1 (25.0-35.0) pg MCHC 31.9 (31.0-37.0) g/dL RDW 14.2 (11.5-15.5) % Plt Count 327 (150-450) k/uL Neutrophils % 67 % Lymphocytes % 23 % Monocytes % 6 % Eosinophils % 2 % Basophils % 0 % Neutrophils # 8.2 H (1.3-7.7) k/uL Lymphocytes # 2.8 (1.0-4.8) k/uL Monocytes # 0.7 (0-1.0) k/uL Eosinophils # 0.2 (0-0.7) k/uL Basophils # 0.1 (0-0.2) k/uL Sodium 141 (137-145) mmol/L Potassium 4.2 (3.5-5.1) mmol/L Chloride 106 (98-107) mmol/L Carbon Dioxide 23 (22-30) mmol/L Anion Gap 12 mmol/L BUN 12 (7-17) mg/dL Creatinine 0.70 (0.52-1.04) mg/dL Est GFR (MDRD) Af Amer >60 (>60 ml/min/1.73 sqM) Est GFR (MDRD) Non-Af >60 (>60 ml/min/1.73 sqM) Glucose 98 (74-99) mg/dL Calcium 9.0 (8.4-10.2) mg/dL Total Bilirubin 0.3 (0.2-1.3) mg/dL AST 23 (14-36) U/L ALT 32 (9-52) U/L Alkaline Phosphatase 53 (38-126) U/L Total Protein 6.9 (6.3-8.2) g/dL Albumin 3.9 (3.5-5.0) g/dL Amylase 72 (30-110) U/L Lipase 156 (23-300) U/L Disposition <Mitch Nettles - Last Filed: 07/23/16 16:02> Time of Disposition: 16:04 Decision Date: 07/23/16 Decision Time: 16:04 <Rupal Hoffman - Last Filed: 07/23/16 16:04> Clinical Impression: Cholelithiasis, Right upper quadrant abdominal pain Disposition: ADMITTED IP TO THIS [facility] Condition: Stable Referrals: Vilma Gautam MD [Primary Care Provider] - 1-2 days
[2016-07-23] MEDS ORDERED: AMPICILLIN-SULBACTAM 3 GM in SODIUM CHLORIDE 0.9% 100 ML IVPB STA (15:05)
--- NOTE | 2016-07-23 15:07 | XR ---
EXAMINATION TYPE: XR abdomen 2V DATE OF EXAM: 07/23/2016 3:04 PM COMPARISON: NONE HISTORY: Pain TECHNIQUE: One view abdominal series FINDINGS: The osseous structures are intact. The bowel gas pattern is nonspecific. Lung bases are clear. Spin a bifida occulta lumbosacral junction. Hypertrophic change of the hip joints. Correlate for femoral a cetabular impingement. IMPRESSION: 1. Nonspecific abdomen.
[2016-07-23 15:12] LABS: Basophils # (A) 0.1 k/uL (0-0.2); Basophils % (A) 0 %; CH 26.8; CHCM 32.9; Eosinophils # (A) 0.2 k/uL (0-0.7); Eosinophils % (A) 2 %; HCT 40.3 % (34.0-46.0); HDW 2.65; HGB 12.9 gm/dL (11.4-16.0); Luc # (Auto) 0.21; Luc % (Auto) 2; Lymphocytes # (A) 2.8 k/uL (1.0-4.8); Lymphocytes % (A) 23 %; MCH 26.1 pg (25.0-35.0); MCHC 31.9 g/dL (31.0-37.0); MCV 81.8 fL (80.0-100.0); Monocytes # (A) 0.7 k/uL (0-1.0); Monocytes % (A) 6 %; Neutrophils # (A) 8.2 k/uL (1.3-7.7); Neutrophils % (A) 67 %; RBC 4.92 m/uL (3.80-5.40); RDW 14.2 % (11.5-15.5); WBC 12.2 k/uL (3.8-10.6)
[2016-07-23 15:25] LABS: ALT 32 U/L (9-52); AST 23 U/L (14-36); Alkaline Phosphatase 53 U/L (38-126); Amylase 72 U/L (30-110); Anion Gap 12 mmol/L; Blood Urea Nitrogen 12 mg/dL (7-17); Carbon Dioxide 23 mmol/L (22-30); Chloride 106 mmol/L (98-107); Glucose 98 mg/dL (74-99); Non-African American GFR(MDRD) >60 (>60 ml/min/1.73 sqM); Potassium 4.2 mmol/L (3.5-5.1); Sodium 141 mmol/L (137-145); Total Bilirubin 0.3 mg/dL (0.2-1.3); Total Protein 6.9 g/dL (6.3-8.2)
[2016-07-23] MEDS ORDERED: NALOXONE 0.4 MG/ML 1 ML VIAL IV PRN (16:04)
[2016-07-23] MEDS ORDERED: ACETAMINOPHEN TAB 325 MG TAB PO PRN (16:04)
[2016-07-23] MEDS ORDERED: GABAPENTIN 400 MG CAP PO PRN (16:06)
[2016-07-23] MEDS ORDERED: METOCLOPRAMIDE 10 MG TAB PO PRN (16:06)
[2016-07-23] MEDS: HYDROmorphone 1 MG/ML 1 ML SYRINGE IV PRN ×2 (17:23→21:00)
[2016-07-23 18:04] VITALS: BMI 39.9
[2016-07-23] MEDS: SODIUM CHLORIDE 0.9% 1,000 ML IV SCH (21:00)
[2016-07-23] MEDS: CITALOPRAM HYDROBROMIDE 20 MG TAB PO SCH (23:19)
[2016-07-23] MEDS: AMPICILLIN-SULBACTAM 3 GM in SODIUM CHLORIDE 0.9% 100 ML IVPB SCH (23:20)
[2016-07-24] MEDS: HYDROmorphone 1 MG/ML 1 ML SYRINGE IV PRN ×6 (01:21→22:24)
[2016-07-24] MEDS: SODIUM CHLORIDE 0.9% 1,000 ML IV SCH ×3 (01:59→23:59)
[2016-07-24] MEDS: ONDANSETRON 4 MG/2 ML VIAL IVP PRN ×2 (02:11→08:31)
[2016-07-24 08:05] LABS: Basophils # (A) 0.1 k/uL (0-0.2); Basophils % (A) 1 %; CH 26.5; CHCM 31.8; Eosinophils # (A) 0.1 k/uL (0-0.7); Eosinophils % (A) 1 %; HCT 39.7 % (34.0-46.0); HDW 2.63; HGB 12.6 gm/dL (11.4-16.0); Luc # (Auto) 0.16; Luc % (Auto) 2; Lymphocytes # (A) 2.3 k/uL (1.0-4.8); Lymphocytes % (A) 22 %; MCH 26.6 pg (25.0-35.0); MCHC 31.8 g/dL (31.0-37.0); MCV 83.6 fL (80.0-100.0); Mean Platelet Volume 6.9; Monocytes # (A) 0.6 k/uL (0-1.0); Monocytes % (A) 6 %; Neutrophils # (A) 7.2 k/uL (1.3-7.7); Neutrophils % (A) 69 %; RBC 4.74 m/uL (3.80-5.40); RDW 14.3 % (11.5-15.5); WBC 10.4 k/uL (3.8-10.6); WBC (Perox) 11.17
[2016-07-24 08:21] LABS: ALT 31 U/L (9-52); AST 21 U/L (14-36); Alkaline Phosphatase 48 U/L (38-126); Anion Gap 11 mmol/L; Blood Urea Nitrogen 9 mg/dL (7-17); Calcium 7.9 mg/dL (8.4-10.2); Carbon Dioxide 23 mmol/L (22-30); Chloride 106 mmol/L (98-107); Glucose 96 mg/dL (74-99); Non-African American GFR(MDRD) >60 (>60 ml/min/1.73 sqM); Potassium 4.1 mmol/L (3.5-5.1); Sodium 140 mmol/L (137-145); Total Bilirubin 0.6 mg/dL (0.2-1.3); Total Protein 6.7 g/dL (6.3-8.2)
[2016-07-24] MEDS: AMPICILLIN-SULBACTAM 3 GM in SODIUM CHLORIDE 0.9% 100 ML IVPB SCH ×2 (08:35→17:44)
--- NOTE | 2016-07-24 08:51 | P.GSHP ---
History of Present Illness H&P Date: 07/24/16 Chief Complaint: Abdominal pain Patient is a 36-year-old obese white female who presents to the emergency room with a complaint of midepigastric right upper quadrant abdominal pain. The pain has been intermittent for the past month but has become progressively worse recently. She had a recent ultrasound consistent with possible acute cholecystitis. She has had some nausea and vomiting and she is had no fever or chills. Patient's laboratory studies reveal a white count of 10.4. Her lipase and amylase were within normal limits and her liver function studies are normal. Past surgical history: Negative Past medical history: 1. Hip dysplasia Medications: 1. Lexapro 2. Multivitamins ALLERGIES: Negative Social history: Smoking occasionally Alcohol: Negative Marijuana: Negative Pregnancies: Negative Last menstrual period 20 days ago Review of systems: HEENT headaches when she is under tension Lungs: Pneumonia in the past Heart: Negative : Kidney stones GI: As above - Constitutional Constitutional: Reports as per HPI - Cardiovascular Cardiovascular: Reports as per HPI - Respiratory Respiratory: Reports as per HPI - Genitourinary (Female) Comment: Kidney stones - Genitourinary (Male) Genitourinary: Reports as per HPI - Musculoskeletal Comment: Hip dysplasia Past Medical History Past Medical History: Hypertension, Pneumonia Additional Past Medical History / Comment(s): RLS History of Any Multi-Drug Resistant Organisms: None Reported Past Surgical History: No Surgical Hx Reported Past Anesthesia/Blood Transfusion Reactions: Unable to Obtain, Motion Sickness Additional Past Anesthesia/Blood Transfusion Reaction / Comment(s): Pt has never received anesthesia. Past Psychological History: Anxiety Additional Psychological History / Comment(s): Pt states her anxiety has been increased lately d/t recent move and looking for employment. She resides with her significant other. She is independent. Smoking Status: Current some day smoker Past Alcohol Use History: None Reported Additional Past Alcohol Use History / Comment(s): Pt states she smokes occasionally in the past year due to stress. Past Drug Use History: None Reported - Past Family History Father Family Medical History: Hypertension Additional Family Medical History / Comment(s): Father has heart problems and has had both knees replaced. He is 65yrs old. Mother Family Medical History: COPD, Fibromyalgia, Musculoskeletal Disorder, Neurologic Disorder, Seizure Disorder Additional Family Medical History / Comment(s): Mother has MD. She is 64yrs old. Medications and Allergies Home Medications Medication Instructions Recorded Confirmed Type Gabapentin [Neurontin] 800 mg PO BID PRN 06/20/16 07/23/16 History Multivitamin [Multivitamins Adult 2 tab PO DAILY 06/20/16 07/23/16 History Gummies] Citalopram Hydrobromide [CeleXA] 20 mg PO HS 07/21/16 07/23/16 History Hydrocodone/Acetaminophen [[place] 2 tab PO Q6HR PRN 07/23/16 07/23/16 History 5-325] Allergies Allergy/AdvReac Type Severity Reaction Status Date / Time No Known Allergies Allergy Verified 07/23/16 14:30 Surgical - Exam Vital Signs Temp Pulse Resp BP Pulse Ox 98.3 F 91 20 175/109 96 07/23/16 13:38 07/23/16 13:38 07/23/16 13:38 07/23/16 13:38 07/23/16 13:38 - General moderate distress, obese - Eyes normal ocular movement - ENT normal pinna, normal nares, no hearing loss - Neck no masses, trachea midline, no lymphadectomy, no venous distension - Respiratory normal expansion, normal respiratory effort, clear to auscultation - Cardiovascular Rhythm: regular Heart Sounds: normal: S1, S2 - Abdomen Tender right upper quadrant Abdomen: tender, bowel sounds - Psychiatric oriented to time, oriented to person, oriented to place, speech is normal Results - Labs 07/24/16 07:35 07/24/16 07:32 Abnormal Lab Results - Last 24 Hours (Table) 07/23/16 07/24/16 Range/Units 14:50 07:32 WBC 12.2 H (3.8-10.6) k/uL Neutrophils # 8.2 H (1.3-7.7) k/uL Calcium 7.9 L (8.4-10.2) mg/dL Diabetes panel 07/23/16 07/24/16 Range/Units 14:50 07:32 Sodium 141 140 (137-145) mmol/L Potassium 4.2 4.1 (3.5-5.1) mmol/L Chloride 106 106 (98-107) mmol/L Carbon Dioxide 23 23 (22-30) mmol/L BUN 12 9 (7-17) mg/dL Creatinine 0.70 0.65 (0.52-1.04) mg/dL Glucose 98 96 (74-99) mg/dL Calcium 9.0 7.9 L (8.4-10.2) mg/dL AST 23 21 (14-36) U/L ALT 32 31 (9-52) U/L Alkaline Phosphatase 53 48 (38-126) U/L Total Protein 6.9 6.7 (6.3-8.2) g/dL Albumin 3.9 3.5 (3.5-5.0) g/dL Calcium panel 07/23/16 07/24/16 Range/Units 14:50 07:32 Calcium 9.0 7.9 L (8.4-10.2) mg/dL Albumin 3.9 3.5 (3.5-5.0) g/dL Pituitary panel 07/23/16 07/24/16 Range/Units 14:50 07:32 Sodium 141 140 (137-145) mmol/L Potassium 4.2 4.1 (3.5-5.1) mmol/L Chloride 106 106 (98-107) mmol/L Carbon Dioxide 23 23 (22-30) mmol/L BUN 12 9 (7-17) mg/dL Creatinine 0.70 0.65 (0.52-1.04) mg/dL Glucose 98 96 (74-99) mg/dL Calcium 9.0 7.9 L (8.4-10.2) mg/dL Adrenal panel 07/23/16 07/24/16 Range/Units 14:50 07:32 Sodium 141 140 (137-145) mmol/L Potassium 4.2 4.1 (3.5-5.1) mmol/L Chloride 106 106 (98-107) mmol/L Carbon Dioxide 23 23 (22-30) mmol/L BUN 12 9 (7-17) mg/dL Creatinine 0.70 0.65 (0.52-1.04) mg/dL Glucose 98 96 (74-99) mg/dL Calcium 9.0 7.9 L (8.4-10.2) mg/dL Total Bilirubin 0.3 0.6 (0.2-1.3) mg/dL AST 23 21 (14-36) U/L ALT 32 31 (9-52) U/L Alkaline Phosphatase 53 48 (38-126) U/L Total Protein 6.9 6.7 (6.3-8.2) g/dL Albumin 3.9 3.5 (3.5-5.0) g/dL - Imaging US - abdomen: report reviewed, image reviewed Assessment and Plan Plan: Impression/plan: 1. Right upper quadrant pain probable acute cholecystitis 2. Obesity 3. Hip dysplasia Plan: 1. Laparoscopic possible open cholecystectomy patient understands risks and benefits including the risks that include but are not limited to bleeding and infection reaction to the anesthetic possible conversion to an open procedure from a laparoscopic procedure which and possibility of injury to the common duct which would require surgical intervention she wishes to proceed
[2016-07-24 08:56] LABS: HCG,Qualitative Serum Not Detected
[2016-07-24] MEDS ORDERED: ACETAMINOPHEN IV (For NPO) 1,000 MG in EMPTY BAG 1 BAG IVPB ONE (09:00)
[2016-07-24 09:11] LABS: Amylase 49 U/L (30-110)
[2016-07-24] MEDS: MULTIVITAMINS, THERA 1 EACH TAB PO SCH (13:50)
[2016-07-24] MEDS ORDERED: HEPARIN SODIUM,PORCINE 5,000 UNIT/ML 1 ML VIAL SQ ONE ×2 (19:19→19:22)
[2016-07-24] MEDS ORDERED: IV FLUID CONTINUATION 1,000 ML IV ONE (19:21)
[2016-07-24] MEDS ORDERED: ONDANSETRON 4 MG/2 ML VIAL IVP ONE (19:27)
[2016-07-24] MEDS: SCOPOLAMINE 1.5MG/72HR PATCH TRANSDERM STA ×2 (19:47→22:20)
[2016-07-24] MEDS ORDERED: GLYCOPYRROLATE 0.2 MG/ML 2 ML VIAL ONE (19:51)
[2016-07-24] MEDS ORDERED: fentaNYL (PF) 50 MCG/ML 2 ML AMP ONE (19:51)
[2016-07-24] MEDS ORDERED: SUCCINYLCHOLINE CHLORIDE 100 MG/5 ML SYR IV ONE (19:51)
[2016-07-24] MEDS ORDERED: KETOROLAC 30 MG/ML 1 ML VIAL ONE (19:51)
[2016-07-24] MEDS ORDERED: NEOSTIGMINE 1 MG/ML 10 ML VIAL ONE (19:51)
[2016-07-24] MEDS ORDERED: PROPOFOL 10 MG/ML 20 ML VIAL IV ONE (19:51)
[2016-07-24] MEDS ORDERED: LIDOCAINE 1% INJ 10MG/ML (20 ML MDV) ONE (19:51)
[2016-07-24] MEDS ORDERED: ROCURONIUM BROMIDE 10 MG/ML 10 ML VIAL IV ONE (19:51)
[2016-07-24] MEDS ORDERED: LIDOCAINE 1% (PF) 10 MG/ML (30 ML SDV) SQ ONE ×2 (20:11)
[2016-07-24] MEDS ORDERED: LACTATED RINGERS 1,000 ML IV ONE ×2 (20:49)
--- NOTE | 2016-07-24 21:06 | P.OP ---
Date of Procedure: 07/24/16 Preoperative Diagnosis: Acute cholecystitis Postoperative Diagnosis: Cholelithiasis/cholecystitis Procedure(s) Performed: Laparoscopic cholecystectomy Implants: Anesthesia: KAMILLE Surgeon: Tori Catherine [employer] Intern #1: Charlotte Bravo Estimated Blood Loss (ml): 10 IV fluids (ml): 800 Pathology: other (gallbladder) Condition: stable Disposition: PACU Indications for Procedure: Acute cholecystitis Operative Findings: Distended gallbladder, mildly inflamed Description of Procedure: Patient was taken to the operating room and following induction of general anesthesia the abdomen was prepped and draped in a sterile fashion. A Veress needle was placed in the left upper quadrant and the abdomen was insufflated to 15 mmHg pressure. Following this a #5 Optiview port was placed in the left upper quadrant. The camera was inserted. Under direct visualization a #5 port was placed in the supraumbilical area. The camera was moved to this location. The #5 port in the left upper quadrant was changed to a #11 port. The patient was placed in reverse Trendelenburg with the right side of the table elevated. Two #5 ports were placed in the right upper quadrant. Through the #5 port sites graspers were placed and the gallbladder was retracted. Through the #11 port site dissection was performed. The cystic duct and the cystic artery were identified. These were stapled and divided. The gallbladder was then taken down from its peritoneal attachments to the liver bed using the electrocautery device. The gallbladder was placed in a Pleatman sac and brought out through the #11 port site. The abdomen was well irrigated. The gallbladder fossa and area of the clips was evaluated and no bleeding was identified. The #11 port was removed and a Chris Huertas was placed. This site was closed using 0 Vicryl suture. Following this #5 ports in the right upper quadrant were removed under direct visualization. No evidence of bleeding was identified. The final #5 port site was removed. The skin was closed using 4-0 Monocryl. The patient tolerated procedure in stable condition. All instrument and sponge counts were correct at the end of the case.
[2016-07-24] MEDS ORDERED: NALOXONE 0.4 MG/ML 1 ML VIAL IV PRN (21:07)
[2016-07-24] MEDS: HYDROmorphone 1 MG/ML 1 ML SYRINGE IVP ONE ×4 (21:20→21:42)
[2016-07-24 21:43] VITALS: RESP 16
[2016-07-24] MEDS: ACETAMINOPHEN IV (For NPO) 1,000 MG in EMPTY BAG 1 BAG IVPB SCH (22:19)
[2016-07-25] MEDS: CITALOPRAM HYDROBROMIDE 20 MG TAB PO SCH
[2016-07-25] MEDS: DEXTROSE 5%-0.45% NACL 1,000 ML IV SCH ×2 (00:01→11:02)
[2016-07-25] MEDS: ACETAMINOPHEN IV (For NPO) 1,000 MG in EMPTY BAG 1 BAG IVPB SCH ×2 (00:03→05:26)
[2016-07-25] MEDS: HEPARIN SODIUM,PORCINE 5,000 UNIT/ML 1 ML VIAL SQ SCH ×2 (00:05→08:13)
[2016-07-25] MEDS: AMPICILLIN-SULBACTAM 3 GM in SODIUM CHLORIDE 0.9% 100 ML IVPB SCH ×2 (00:35→06:16)
[2016-07-25] MEDS: HYDROcodone/APAP 5-325MG 1 EACH TAB PO PRN ×3 (01:38→11:04)
[2016-07-25] MEDS: HYDROmorphone 1 MG/ML 1 ML SYRINGE IV PRN (02:28)
[2016-07-25] MEDS: SODIUM CHLORIDE 0.9% 1,000 ML IV SCH ×2 (05:26→11:07)
[2016-07-25 08:18] VITALS: TEMP 97.8
[2016-07-25 08:20] VITALS: BP 142/86; PULSE 80
--- NOTE | 2016-07-25 09:06 | P.DS ---
Providers Date of admission: 07/23/16 17:14 Expected date of discharge: 07/25/16 Attending physician: Tori Catherine [facility] Course: 36-year-old female presented with a chief complaint of developing mid epigastric right upper quadrant pain right Medicare. Patient stated has been intermittent over the last month has gotten progressively more symptomatic. Patient stated it was nausea vomiting sensation had no fever. The white count on admission was 10.4. Amylase lipase were normal. Liver enzymes were normal as well. Patient's workup indicated that the patient had acute cholecystitis. Patient elected to proceed with a laparoscopic cholecystectomy on the July 24 postop there were no postop events. Patient was up ambulating tolerating ice chips and clear liquid diet which was advanced to full. Pain medication effective for pain control patient was discharged home Impression discharge diagnosis Present on admission right upper quadrant epigastric pain suspect due to acute cholecystitis Laparoscopic cholecystectomy for acute cholecystitis on 24 of July Obesity BMI 39 Present on admission leukocytosis suspect reactive The above dictated assessment and findings were discussed with dr abebe . Impression and the plan of care have been dictated as directed. Iris Eaton nurse practitioner acting as a scribe for dr abebe Patient Condition at Discharge: Stable Plan - Discharge Summary New Discharge Prescriptions: HYDROcodone/APAP 5-325MG [[place]ue 5-325] 1 each PO Q4HR PRN #15 tab PRN Reason: Moderate Pain Discharge Medication List Gabapentin [Neurontin] 800 mg PO BID PRN 06/20/16 [History] Multivitamin [Multivitamins Adult Gummies] 2 tab PO DAILY 06/20/16 [History] Amoxicillin 500 mg PO Q8H #30 capsule 07/21/16 [Rx] Citalopram Hydrobromide [CeleXA] 20 mg PO HS 07/21/16 [History] Metoclopramide HCl [Reglan] 10 mg PO Q6HR PRN #15 tablet 07/21/16 [Rx] Hydrocodone/Acetaminophen [[place]ue 5-325] 2 tab PO Q6HR PRN 07/23/16 [History] Acetaminophen Tab [Tylenol] 650 mg PO Q6HR PRN tab 07/25/16 [Rx] HYDROcodone/APAP 5-325MG [Prue 5-325] 1 each PO Q4HR PRN #15 tab 07/25/16 [Rx] Follow up Appointment(s)/Referral(s): Vilma Gautam MD [Primary Care Provider] - 1-2 days Tori Catherine MD [STAFF PHYSICIAN] - 1 Week Activity/Diet/Wound Care/Special Instructions: Remove surgical dressing on Friday, July 26 Do not lift over 10 pounds May shower on the 26 of July Follow-up with Dr. Goyal in one week patient does not need to follow-up with Discharge Disposition: HOME SELF-CARE
[2016-07-25] MEDS: MULTIVITAMINS, THERA 1 EACH TAB PO SCH (11:05)
== END 2016-07-25 11:55 | disposition home or self-care (01) | DRG 419 ==
LOC: EC 13:30 → 3SUR 17:14
PROVIDERS: ADMIT Surgery; ATTEND Surgery
PROC: 0FT44ZZ Resection of Gallbladder, Percutaneous Endoscopic Approach (ICD-10-PCS; principal; 2016-07-24 07:30)
DX: K80.00 Calculus of gallbladder with acute cholecystitis without obstruction (principal); I10 Essential (primary) hypertension; E66.9 Obesity, unspecified; F41.9 Anxiety disorder, unspecified; Q65.89 Other specified congenital deformities of hip; D72.829 Elevated white blood cell count, unspecified; F17.200 Nicotine dependence, unspecified, uncomplicated; R11.2 Nausea with vomiting, unspecified; G25.81 Restless legs syndrome; Z68.39 Body mass index [BMI] 39.0-39.9, adult; Z79.899 Other long term (current) drug therapy; Z82.5 Family history of asthma and other chronic lower respiratory diseases; Z82.0 Family history of epilepsy and other diseases of the nervous system; Z82.49 Family history of ischemic heart disease and other diseases of the circulatory system; Z87.442 Personal history of urinary calculi; Z87.01 Personal history of pneumonia (recurrent); Z79.891 Long term (current) use of opiate analgesic; Z82.69 Family history of other diseases of the musculoskeletal system and connective tissue; Z82.61 Family history of arthritis; Z56.0 Unemployment, unspecified
CPT/HCPCS: 36415; 74000; 74020; 76705; 80053; 81001; 81025; 82150; 83605; 83690; 84703; 85025; 85610; 85730; 87040; 88304; 96361; 96374; 96375; 99284

== ENCOUNTER 2016-07-28 14:40 | Emergency (ER) | payer OTHER ==
[2016-07-28 15:03] VITALS: BP 112/82; PULSE 100; RESP 20; TEMP 99.1
--- NOTE | 2016-07-28 15:51 | ED ---
Recheck HPI - General Chief Complaint: Wound/Laceration Stated Complaint: Wound Check Time Seen by Provider: 07/28/16 15:27 Source: patient Mode of arrival: ambulatory Limitations: no limitations - History of Present Illness Initial Comments: Patient is a 36-year-old female presenting to the emergency department for recheck of her laparoscopic incisions from her laparoscopic cholecystectomy she underwent approximately 3 days ago. Patient states her sister convinced her to come into the emergency department because she thought she saw some drainage from one of the wounds. Patient denies chills, fevers, nausea, vomiting, shortness of breath, chest pain, abdominal pain, diarrhea or constipation, urinary urgency, dysuria, or hematuria. Patient states she has an appointment to see her surgeon on August 01. - Related Data Home Medications Medication Instructions Recorded Confirmed Gabapentin [Neurontin] 800 mg PO BID PRN 06/20/16 07/23/16 Multivitamin [Multivitamins Adult 2 tab PO DAILY 06/20/16 07/23/16 Gummies] Citalopram Hydrobromide [CeleXA] 20 mg PO HS 07/21/16 07/23/16 Hydrocodone/Acetaminophen [[place] 2 tab PO Q6HR PRN 07/23/16 07/23/16 5-325] Previous Rx's Medication Instructions Recorded Amoxicillin 500 mg PO Q8H #30 capsule 07/21/16 Metoclopramide HCl [Reglan] 10 mg PO Q6HR PRN #15 tablet 07/21/16 Acetaminophen Tab [Tylenol] 650 mg PO Q6HR PRN tab 07/25/16 HYDROcodone/APAP 5-325MG [[place] 1 each PO Q4HR PRN #15 tab 07/25/16 5-325] Allergies Allergy/AdvReac Type Severity Reaction Status Date / Time No Known Allergies Allergy Verified 07/28/16 15:03 Review of Systems ROS Statement: Those systems with pertinent positive or pertinent negative responses have been documented in the HPI. ROS Other: All systems not noted in ROS Statement are negative. Past Medical History Past Medical History: Hypertension, Pneumonia Additional Past Medical History / Comment(s): RLS History of Any Multi-Drug Resistant Organisms: None Reported Past Surgical History: Cholecystectomy Past Anesthesia/Blood Transfusion Reactions: Unable to Obtain, Motion Sickness Additional Past Anesthesia/Blood Transfusion Reaction / Comment(s): Pt has never received anesthesia. Past Psychological History: Anxiety Additional Psychological History / Comment(s): Pt states her anxiety has been increased lately d/t recent move and looking for employment. She resides with her significant other. She is independent. Smoking Status: Current some day smoker Past Alcohol Use History: None Reported Additional Past Alcohol Use History / Comment(s): Pt states she smokes occasionally in the past year due to stress. Past Drug Use History: None Reported - Past Family History Father Family Medical History: Hypertension Additional Family Medical History / Comment(s): Father has heart problems and has had both knees replaced. He is 65yrs old. Mother Family Medical History: COPD, Fibromyalgia, Musculoskeletal Disorder, Neurologic Disorder, Seizure Disorder Additional Family Medical History / Comment(s): Mother has MD. She is 64yrs old. General Exam - General Exam Comments Initial Comments: GENERAL: Pt awake and alert, well-appearing, well-nourished, and in no acute distress. HEAD: Atraumatic, normocephalic. EYES: Pupils equal, round, and reactive to light, extraocular movements intact, sclera anicteric, conjunctiva are normal. ENT: Oropharynx clear without exudates. Moist mucous membranes. NECK:Normal range of motion, supple without lymphadenopathy. LUNGS: Breath sounds clear to auscultation bilaterally. No wheezes, rales, or rhonchi. HEART: Heart S1, S2, no S3 or S4. Regular rate and rhythm. No murmurs, rubs or gallops. ABDOMEN: Soft, nontender, nondistended, normoactive bowel sounds. No guarding, no rebound. No masses or organomegaly appreciated. Laparoscopic surgical incisions dry and intact, covered with Steri-Strips, no drainage or erythema. EXTREMITIES: 2+ peripheral pulses. No edema. No calf tenderness. NEUROLOGICAL: Pt oriented x 3. No focal deficits noted. Strength and sensation grossly intact. PSYCH: Normal mood, normal affect. SKIN: Warm, dry. Limitations: no limitations Course Vital Signs 07/28/16 14:59 Temperature 99.1 F Pulse Rate 100 Respiratory 20 Rate Blood Pressure 112/82 O2 Sat by Pulse 98 Oximetry Medical Decision Making - Medical Decision Making Recheck of surgical incisions without evidence of drainage or infection. Patient reassured and instructed to follow-up with her surgeon as previously scheduled. Patient started to return to the emergency department with new worsening symptoms. Patient agrees to treatment plan. Discharge instructions and return parameters reviewed. Disposition Clinical Impression: Encounter for postoperative wound check Disposition: HOME SELF-CARE Condition: Good Instructions: Skin Adhesive Care (ED) Additional Instructions: Continue wound care according to surgeon's instruction. Monitor for signs and symptoms of increased redness, purulent drainage, fevers, nausea, vomiting. Follow-up with surgeon as previously scheduled. Referrals: Vilma Gautam MD [Primary Care Provider] - 1-2 days Time of Disposition: 15:50
== END 2016-07-28 15:58 | disposition home or self-care (01) ==
LOC: EC 14:40
DX: Z48.815 Encounter for surgical aftercare following surgery on the digestive system (principal); F41.9 Anxiety disorder, unspecified; F17.200 Nicotine dependence, unspecified, uncomplicated; Z79.899 Other long term (current) drug therapy; Z90.49 Acquired absence of other specified parts of digestive tract
CPT/HCPCS: 99282